=== PATIENT | female | born 1995 | race African-American/Black ===

== ENCOUNTER 2022-04-09 12:39 | Emergency (ER) | payer MEDICAID ==
[~2022-04-09] VITALS: Ht 177.8 cm; Wt 122.5 kg
[~2022-04-09 12:39] MED LIST: HYDR-1421; [UNRECOGNIZED DRUG - CODE]
[2022-04-09 12:40] VITALS: BP 137/75
[2022-04-09 14:06] LABS: Urine Bacteria NONE SEEN /hpf (None Seen); Urine Blood Negative /uL (Negative); Urine WBC 42 /hpf (0 - 5)
== END 2022-04-09 16:55 | disposition left against medical advice (07) ==
LOC: ER 12:49
DX: R10.30 Lower abdominal pain, unspecified (principal); R11.0 Nausea; Z53.21 Procedure and treatment not carried out due to patient leaving prior to being seen by health care provider
CPT/HCPCS: 81001

== ENCOUNTER 2023-05-22 12:06 | Emergency (ER) | payer MEDICAID ==
[~2023-05-22] VITALS: Ht 177.8 cm; Wt 124.9 kg
[2023-05-22] MEDS ORDERED: ONDANSETRON ODT 4 MG TAB PO ONE (12:30)
[2023-05-22 12:42] LABS: Basophils # (auto) 0.1 10 ^3/uL (0-0.2); Eosinophils # (auto) 0.1 10 ^3/uL (0-0.8); Mean Corpuscular Hemoglobin 21.5 pg (28.0-32.0); Monocytes # (auto) 0.9 10 ^3/uL (0-1.3); Neutrophils # (auto) 7.8 10 ^3/uL (1.6-8.6); Nucleated Red Blood Cells % 0.1 %
[2023-05-22 12:44] LABS: Basophils % (auto) 1.2 % (0.0-2.0); Hematocrit 32.9 % (36.0-46.0); Hemoglobin 10.2 g/dL (12.2-16.2); Lymphocytes # (auto) 2.3 10 ^3/uL (0.4-5.4); Lymphocytes % (auto) 20.1 % (10.0-50.0); Mean Corpuscular Hgb Conc. 31.1 g/dL (32.0-36.0); Mean Corpuscular Volume 69.2 fL (80.0-100.0); Neutrophils % (auto) 69.7 % (37.0-80.0); Red Blood Cells 4.75 10^6/uL (4.0-5.20); Red Cell Distribution Width 19.8 % (11.8-14.3); White Blood Cell 11.2 10^3/uL (4.4-10.8)
[2023-05-22 13:01] LABS: Albumin 3.8 g/dL (3.4-5.0); BUN/Creatinine Ratio 9.4 (10.0-20.0); Potassium 3.8 mmol/L (3.5-5.1)
[2023-05-22 13:03] LABS: Bilirubin, Total 0.5 mg/dL (0.2-1.0); Total Protein 8.1 g/dL (6.4-8.2)
[2023-05-22 13:29] LABS: Urine Bacteria FEW /hpf (None Seen); Urine Blood 3+ /uL (Negative); Urine Hyaline Cast FEW /lpf (0 - 2); Urine Specific Gravity 1.005 (1.001-1.035); Urine WBC 3 /hpf (0 - 5)
[2023-05-22 15:02] VITALS: BP 128/80
== END 2023-05-22 15:30 | disposition home or self-care (01) ==
LOC: ER 12:06
DX: N83.201 Unspecified ovarian cyst, right side (principal); R10.2 Pelvic and perineal pain; R30.0 Dysuria; F41.9 Anxiety disorder, unspecified; J45.909 Unspecified asthma, uncomplicated; F17.210 Nicotine dependence, cigarettes, uncomplicated; Z87.442 Personal history of urinary calculi; Z79.1 Long term (current) use of non-steroidal anti-inflammatories (NSAID); Z79.899 Other long term (current) drug therapy
CPT/HCPCS: 36415; 76856; 80053; 81001; 81025; 84702; 85025; 99284; Q0162